=== PATIENT | male | born 1990 | race Two or more races ===

== ENCOUNTER 2020-02-24 08:13 | Emergency (ER) | payer OTHER ==
[~2020-02-24] VITALS: Ht 170.2 cm; Wt 61.2 kg
[2020-02-24 08:33] VITALS: BP 112/66
== END 2020-02-24 09:00 | disposition home or self-care (01) ==
LOC: ER 08:13
DX: S61.300A Unspecified open wound of right index finger with damage to nail, initial encounter (principal); W29.8XXA Contact with other powered hand tools and household machinery, initial encounter; Y93.89 Activity, other specified; Y92.89 Other specified places as the place of occurrence of the external cause; Y99.8 Other external cause status